=== PATIENT | female | born 1945 | race Caucasian/White ===

== ENCOUNTER 2016-04-26 11:10 | Observation (INO) ==
[2016-04-26 11:31] LABS: BASOPHILS # (AUTO) 0.1 K/uL (0-0.2); BASOPHILS % (AUTO) 0.9 % (0.0-3.0); EOSINOPHILS # (AUTO) 0.9 K/ul (0.0-0.7); EOSINOPHILS % (AUTO) 15.2 % (0.0-7.0); HEMATOCRIT 40.4 % (37.0-47.0); HEMOGLOBIN 13.7 g/dl (12.0-16.0); IMMATURE GRANULOCYTE % (AUTO) 0.2 % (0.0-5.0); LYMPHOCYTES # (AUTO) 1.2 K/uL (0.60-3.4); LYMPHOCYTES % (AUTO) 21.6 (10.0-50.0); MEAN CORPUSCULAR HEMOGLOBIN 30.9 pg (27.0-31.0); MEAN CORPUSCULAR HGB CONC 33.9 (31.8-35.4); MEAN CORPUSCULAR VOLUME 91.2 fl (81.0-99.0); MONOCYTES # (AUTO) 0.4 K/uL (0.4-2.0); MONOCYTES % (AUTO) 7.8 (0-10); NEUTROPHILS # (AUTO) 3.1 K/ul (2.0-6.9); NEUTROPHILS % (AUTO) 54.3; PLATELET COUNT 228 10^3/uL (140-440); RED BLOOD COUNT 4.43 10^6/ul (4.20-5.40); WHITE BLOOD COUNT 5.65 K/ul (4.6-10.2)
[2016-04-26 11:56] LABS: ALBUMIN 3.9 g/dL (3.4-5.0); ALBUMIN/GLOBULIN RATIO 1.26; ANION GAP 14.6; BILIRUBIN,TOTAL 1.09 mg/dL (0.00-1.20); BUN/CREATININE RATIO 25.88; CALCIUM 9.7 mg/dL (8.2-10.2); CREATININE 0.85 mg/dL (0.60-1.30); POTASSIUM 3.6 mmol/L (3.5-5.10); TROPONIN I 0.023 ng/ml (0.0000-0.4000)
--- NOTE | 2016-04-26 11:56 | DI ---
EXAM: Chest one view HISTORY: Pain COMPARISON: 06/17/2014 TECHNIQUE: Single view of the chest was performed FINDINGS: The lungs are clear. There is no pleural effusion or pneumothorax. The heart is normal in size. The mediastinal contour is normal. There are no acute abnormalities of the bones. IMPRESSION: No acute cardiopulmonary process.
--- NOTE | 2016-04-26 13:46 | ED.PDOC ---
General ED Provider: Dr. KELLY BEAUCHAMP Chief Complaint: Chest Pain Stated Complaint: CHEST PAIN Time Seen by Physician: 11:10 Mode of Arrival: Walk-In Information Source: Patient Exam Limitations: No limitations Primary Care Provider: PASCUAL AMBROSIO Nursing and Triage Documentation Reviewed and Agree: Yes Cardiovascular Complaint Exam - Chest Pain Complaint/Exam Onset: Gradual Duration: TODAY THIS MORNING AT REST PT STATED IT HAPPENED DUE TO STRESSED Symptoms Are: Resolved Timing: Intermittent Length of Chest Pain Episodes: 20 MIN Initial Severity: Moderate Current Severity: None Location: Reports: Midsternal Pain Radiates: Reports: None Character: Reports: Aching Aggravating: Reports: None Alleviating: Reports: None Associated Signs and Symptoms: Denies: Diaphoresis, Nausea, Vomiting, Fever, Palpitations, Cough, Hemoptysis, Back pain, Abdominal pain, Dizziness, Short of air, Calf pain, Calf swelling Related Surgical History: Reports: None History of Healthcare-Acquired Pneumonia: Reports: No AMI/ACS Risk Factors: Reports: Hypertension TAD Risk Factors: Reports: Hypertension Pulmonary Embolism Risk Factors: Reports: None Prior Care for this Complaint: No Recent Stress Test: No Recent Echo/LV Function: No JVD Present: No Subcutaneous Emphysema Present: No Diminshed Breath Sounds: No Reproducible Chest Wall Pain: No Bilateral Pulses Present: No Unequal Pulses Noted: No If Risk Factors for AMI/ACS Consider: EKG, Cardiac Enzymes Review of Systems - Review Of Systems Constitutional: Reports: No symptoms Eyes: Reports: No symptoms Ears, Nose, Mouth, Throat: Reports: No symptoms Respiratory: Reports: No symptoms Cardiac: Reports: Chest pain GI: Reports: No symptoms : Reports: No symptoms Musculoskeletal: Reports: No symptoms Skin: Reports: No symptoms Neurological: Reports: No symptoms Endocrine: Reports: No symptoms Hematologic/Lymphatic: Reports: No symptoms All Other Systems: Reviewed and Negative Past Medical History - Past Medical History Previously Healthy: No Endocrine: Reports: None Cardiovascular: Reports: Hypertension Respiratory: Reports: None Hematological: Reports: None Gastrointestinal: Reports: None Genitourinary: Reports: None Neuro/Psych: Reports: None Musculoskeletal: Reports: None Cancer: Reports: None Last Menstrual Period: none - Surgical History General Surgical History: Reports: None - Family History Family History: Reports: None - Social History Smoking Status: Never smoker Hx Substance Use: No Alcohol Screening: Occasionally Physical Exam - Physical Exam Appearance: Well-appearing, No pain distress, Well-nourished Eyes: FLOYD, EOMI, Conjunctiva clear ENT: Ears normal, Nose normal, Oropharynx normal Respiratory: Airway patent, Breath sounds clear, Breath sounds equal, Respirations nonlabored Cardiovascular: RRR, Pulses normal, No rub, No murmur GI/: Soft, Nontender, No masses, Bowel sounds normal, No Organomegaly Musculoskeletal: Normal strength, ROM intact, No edema, No calf tenderness Skin: Warm, Dry, Normal color Neurological: Sensation intact, Motor intact, Reflexes intact, Cranial nerves intact, Alert, Oriented Psychiatric: Affect appropriate, Mood appropriate Interpretation - Radiology Interpretation Radiology Interpretation By: Radiologist - Cleaning Matron Rate: Normal Rhythm: Sinus Ectopy: None Re-Evaluation - Re-Evaluation Time of Re-Evaluation: 11:30 Status: Improved Vital Signs Stable: Yes Pain Level: 0 Appearance: NAD Lungs: Clear Skin: Warm and Dry Neuro: Alert and Oriented X3 CV: Other (PAIN FREE THROUGH OUT ED VISIT) - Re-Evaluation Time of Re-Evaluation: 13:48 Status: Improved Vital Signs Stable: Yes Appearance: NAD Skin: Warm and Dry Neuro: Alert and Oriented X3 CV: RRR (STILL PAIN FREE) Physician Notification - Case Discussed Physician Notified: AMBROSIO Time of Notification: 14:22 (WILL SEE PT IN THE EMERGENCY [facility]) Admit To: Observation Critical Care Note - Critical Care Note Total Time (mins): 0 Course - Course Hematology/Chemistry: 17 11:28 04/26/16 11:28 Orders, Labs, Meds: Lab Review 04/26/16 11:28 WBC 5.65 RBC 4.43 Hgb 13.7 Hct 40.4 MCV 91.2 MCH 30.9 MCHC 33.9 RDW Coeff of Yvon 11.9 Plt Count 228 Immature Gran % (Auto) 0.2 Neut % (Auto) 54.3 Lymph % (Auto) 21.6 Kleberg % (Auto) 7.8 Eos % (Auto) 15.2 H Baso % (Auto) 0.9 Immature Gran # (Auto) 0.0 Neut # 3.1 Lymph # 1.2 Kleberg # 0.4 Eos # 0.9 H Baso # 0.1 D-Dimer 0.35 Sodium 141 Potassium 3.6 Chloride 100 Carbon Dioxide 30 Anion Gap 14.6 BUN 22 H Creatinine 0.85 Estimated GFR (MDRD) 66.00 BUN/Creatinine Ratio 25.88 Glucose 98 Calcium 9.7 Total Bilirubin 1.09 AST 16 ALT 21 Alkaline Phosphatase 58 Total Creatine Kinase 41 Troponin I 0.0230 B-Natriuretic Peptide 95 Total Protein 7.0 Albumin 3.9 Globulin 3.1 Albumin/Globulin Ratio 1.26 Orders Category Date Time Status PLACE PATIENT OBSERVATION .TO [facility] (MONITORED BED ADMISSION 04/26/16 14: 47 Ordered ) ECHOCARDIOGRAM 2D-M MODE Routine CARDIO 04/26/16 14:48 Ordered EKG-(ED ONLY) Stat CARDIO 04/26/16 11:21 Completed EKG-(ED ONLY) Stat CARDIO 04/26/16 12:12 Completed EKG-(ED ONLY) Stat CARDIO 04/26/16 14:32 Ordered EKG-(IP & OP ONLY) DAILY CARDIO 04/27/16 06:00 Ordered EKG-(IP & OP ONLY) DAILY CARDIO 04/28/16 06:00 Ordered EKG-(IP & OP ONLY) DAILY CARDIO 04/29/16 06:00 Ordered STRESS ECHO Routine CARDIO 04/26/16 14:48 Ordered ACTIVITY .Complete BR CARE 04/26/16 14:49 Ordered INTAKE & OUTPUT Q8HR CARE 04/26/16 14:47 Ordered TELEMETRY MONITORING TELE CARE 04/26/16 14:47 Ordered REGULAR DIET DIETARY 04/26/16 Dinner Ordered ED IV/MEDIPORT/POWERPORT .ONCE EMERGENCY 04/26/16 11:20 Active B-TYPE NATRIURETIC PEPTIDE Stat LAB 04/26/16 11:28 Completed CBC W/ AUTO DIFF DAILY@0600 LAB 04/27/16 06:00 Ordered CBC W/ AUTO DIFF DAILY@0600 LAB 04/28/16 06:00 Ordered CBC W/ AUTO DIFF DAILY@0600 LAB 04/29/16 06:00 Ordered CBC W/ AUTO DIFF DAILY@0600 LAB 04/30/16 06:00 Ordered CBC W/ AUTO DIFF DAILY@0600 LAB 05/01/16 06:00 Ordered CBC W/ AUTO DIFF DAILY@0600 LAB 05/02/16 06:00 Ordered CBC W/ AUTO DIFF DAILY@0600 LAB 05/03/16 06:00 Ordered CBC W/ AUTO DIFF DAILY@0600 LAB 05/04/16 06:00 Ordered CBC W/ AUTO DIFF DAILY@0600 LAB 05/05/16 06:00 Ordered CBC W/ AUTO DIFF DAILY@0600 LAB 05/06/16 06:00 Ordered CBC W/ AUTO DIFF DAILY@0600 LAB 05/07/16 06:00 Ordered CBC W/ AUTO DIFF DAILY@0600 LAB 05/08/16 06:00 Ordered CBC W/ AUTO DIFF DAILY@0600 LAB 05/09/16 06:00 Ordered CBC W/ AUTO DIFF DAILY@0600 LAB 05/10/16 06:00 Ordered CBC W/ AUTO DIFF DAILY@0600 LAB 05/11/16 06:00 Ordered CBC W/ AUTO DIFF DAILY@0600 LAB 05/12/16 06:00 Ordered CBC W/ AUTO DIFF DAILY@0600 LAB 05/13/16 06:00 Ordered CBC W/ AUTO DIFF DAILY@0600 LAB 05/14/16 06:00 Ordered CBC W/ AUTO DIFF DAILY@0600 LAB 05/15/16 06:00 Ordered CBC W/ AUTO DIFF DAILY@0600 LAB 05/16/16 06:00 Ordered CBC W/ AUTO DIFF Stat LAB 04/26/16 11:28 Completed COMPREHENSIVE METABOLIC PANEL DAILY@0600 LAB 04/27/16 06:00 Ordered COMPREHENSIVE METABOLIC PANEL DAILY@0600 LAB 04/28/16 06:00 Ordered COMPREHENSIVE METABOLIC PANEL DAILY@0600 LAB 04/29/16 06:00 Ordered COMPREHENSIVE METABOLIC PANEL DAILY@0600 LAB 04/30/16 06:00 Ordered COMPREHENSIVE METABOLIC PANEL DAILY@0600 LAB 05/01/16 06:00 Ordered COMPREHENSIVE METABOLIC PANEL DAILY@0600 LAB 05/02/16 06:00 Ordered COMPREHENSIVE METABOLIC PANEL DAILY@0600 LAB 05/03/16 06:00 Ordered COMPREHENSIVE METABOLIC PANEL DAILY@0600 LAB 05/04/16 06:00 Ordered COMPREHENSIVE METABOLIC PANEL DAILY@0600 LAB 05/05/16 06:00 Ordered COMPREHENSIVE METABOLIC PANEL DAILY@0600 LAB 05/06/16 06:00 Ordered COMPREHENSIVE METABOLIC PANEL DAILY@0600 LAB 05/07/16 06:00 Ordered COMPREHENSIVE METABOLIC PANEL DAILY@0600 LAB 05/08/16 06:00 Ordered COMPREHENSIVE METABOLIC PANEL DAILY@0600 LAB 05/09/16 06:00 Ordered COMPREHENSIVE METABOLIC PANEL DAILY@0600 LAB 05/10/16 06:00 Ordered COMPREHENSIVE METABOLIC PANEL DAILY@0600 LAB 05/11/16 06:00 Ordered COMPREHENSIVE METABOLIC PANEL DAILY@0600 LAB 05/12/16 06:00 Ordered COMPREHENSIVE METABOLIC PANEL DAILY@0600 LAB 05/13/16 06:00 Ordered COMPREHENSIVE METABOLIC PANEL DAILY@0600 LAB 05/14/16 06:00 Ordered COMPREHENSIVE METABOLIC PANEL DAILY@0600 LAB 05/15/16 06:00 Ordered COMPREHENSIVE METABOLIC PANEL DAILY@0600 LAB 05/16/16 06:00 Ordered COMPREHENSIVE METABOLIC PANEL Stat LAB 04/26/16 11:28 Completed CREATINE KINASE Q8H LAB 04/26/16 21:00 Ordered CREATINE KINASE Q8H LAB 04/27/16 05:00 Ordered CREATINE KINASE Stat LAB 04/26/16 11:28 Completed D-DIMER Stat LAB 04/26/16 11:28 Completed TROPONIN I Q8H LAB 04/26/16 21:00 Ordered TROPONIN I Q8H LAB 04/27/16 05:00 Ordered TROPONIN I Stat LAB 04/26/16 11:28 Completed 0.9 % Sodium Chloride [Saline Flush] MEDS 04/26/16 11:20 Active 1 syr IVF PRN PRN Aspirin [Aspirin EC] MEDS 04/27/16 08:00 Ordered 81 mg PO DAILYWM Atenolol/Chlorthalidone [Atenolol-Chlorthalidone 50-25] MEDS 04/27/16 09:00 Ordered 1 tab PO DAILY Calcium Carbonate/Vitamin D3 [Calcium 600 + Vit D MEDS 04/27/16 09:00 Ordered Caplet] 1 each PO DAILY Cholecalciferol (Vitamin D3) [Vitamin D3] MEDS 04/27/16 09:00 Ordered 2,000 unit PO DAILY Cyanocobalamin (Vitamin B-12) [Vitamin B-12] MEDS 04/27/16 09:00 Ordered 5,000 mcg PO DAILY Potassium Chloride [K-Dur] MEDS 04/27/16 09:00 Ordered 20 meq PO DAILY Sodium Chloride 0.9% [Sodium Chloride] 1,000 ml MEDS 04/26/16 15:00 Ordered IV 75 mls/hr CHEST, 1V AP ONLY Stat RADS 04/26/16 11:20 Completed Medications Generic Name Dose Route Start Last Admin Trade Name Freq PRN Reason Stop Dose Admin Sodium Chloride 1,000 mls @ 75 mls/hr 04/26/16 15:00 Sodium Chloride IV .[id number] Sodium Chloride 1 syr 04/26/16 11:20 Saline Flush IVF PRN PRN To flush IV Vital Signs: Temp Pulse Resp BP Pulse Ox 04/26/16 11:10 97.4 F L 57 L 18 142/82 H 100 ASH Risk Score ASH Risk Score: Risk Score Odds of by 30D 0 0.1 (0.1-0.2) 1 0.3 (0.2-0.3) 2 0.4 (0.3-0.5) 3 0.7 (0.6-0.9) 4 1.2 (1.0-1.5) 5 2.2 (1.9-2.6) 6 3.0 (2.5-3.6) 7 4.8 (3.8-6.1) Departure - Departure Time of Disposition: 13:49 (mily stern spoke to pt stay pt stated she would like to leave AMA LATER I TRIED TO TALK PT INTO STAYING BUT PT REQUESTED PMD TO SEE HER IN THE EMERGENCY [facility] GOOD[place] MADE TO DOCTOR DAILY HE WILL SEE PT IN E/ D. NO ACUTE EVENT WHILE IN ED ) Disposition: PLACED OBSERVATION Discharge Problem: Chest pain Instructions: Chest Pain (ED) Condition: Good Pt referred to PMD for follow-up: Yes (PMD WILL SEE PT IN THE E/D) Additional Instructions: Please call your Family Physician as soon as possible to schedule a follow-up appointment. Allergies/Adverse Reactions: Allergies No Known Allergies Allergy (Verified 04/26/16 11:16) Home Medications: Ambulatory Orders Calcium Carbonate/Vitamin D3 [Calcium 600 + Vit D Caplet] 1 each PO DAILY Cholecalciferol (Vitamin D3) [Vitamin D-3] 2,000 unit PO DAILY 04/13/14 Cyanocobalamin (Vitamin B-12) [Vitamin B-12] 5,000 mcg PO DAILY 04/13/14 Aspirin [Aspirin EC] 81 mg PO DAILYWM 02/26/16 Atenolol/Chlorthalidone [Atenolol-Chlorthalidone 50-25] 1 tab PO DAILY 02/26/16 Famotidine [Pepcid] 20 mg PO BIDAC PRN 02/26/16 Potassium Chloride [K-Dur] 20 meq PO DAILY 04/26/16 Disposition Discussed With: Patient
[2016-04-26 16:18] VITALS: BMI 28.7
[2016-04-26] MEDS: SODIUM CHLORIDE 1,000 ML IV SCH (16:45)
[2016-04-26 22:11] LABS: TROPONIN I 0.024 ng/ml (0.0000-0.4000)
[2016-04-27] MEDS: SODIUM CHLORIDE 1,000 ML IV SCH (04:36)
[2016-04-27 05:17] LABS: BASOPHILS % (AUTO) 0.7 % (0.0-3.0); EOSINOPHILS # (AUTO) 0.9 K/ul (0.0-0.7); EOSINOPHILS % (AUTO) 16.4 % (0.0-7.0); HEMATOCRIT 37.5 % (37.0-47.0); HEMOGLOBIN 12.6 g/dl (12.0-16.0); IMMATURE GRANULOCYTE % (AUTO) 0.4 % (0.0-5.0); LYMPHOCYTES # (AUTO) 1.6 K/uL (0.60-3.4); LYMPHOCYTES % (AUTO) 28.2 (10.0-50.0); MEAN CORPUSCULAR HEMOGLOBIN 30.4 pg (27.0-31.0); MEAN CORPUSCULAR HGB CONC 33.6 (31.8-35.4); MEAN CORPUSCULAR VOLUME 90.6 fl (81.0-99.0); MONOCYTES # (AUTO) 0.5 K/uL (0.4-2.0); MONOCYTES % (AUTO) 8.8 (0-10); NEUTROPHILS # (AUTO) 2.5 K/ul (2.0-6.9); NEUTROPHILS % (AUTO) 45.5; PLATELET COUNT 204 10^3/uL (140-440); RED BLOOD COUNT 4.14 10^6/ul (4.20-5.40); WHITE BLOOD COUNT 5.54 K/ul (4.6-10.2)
[2016-04-27 05:36] LABS: ALBUMIN 3.5 g/dL (3.4-5.0); ALBUMIN/GLOBULIN RATIO 1.25; ANION GAP 11.4; BILIRUBIN,TOTAL 1.42 mg/dL (0.00-1.20); BUN/CREATININE RATIO 19.71; CALCIUM 8.9 mg/dL (8.2-10.2); CREATININE 0.71 mg/dL (0.60-1.30); POTASSIUM 3.4 mmol/L (3.5-5.10); TOTAL PROTEIN 6.3 g/dL (5.8-8.1)
[2016-04-27 05:42] LABS: TROPONIN I 0.023 ng/ml (0.0000-0.4000)
[2016-04-27] MEDS ORDERED: ASPIRIN EC PO SCH (08:00)
[2016-04-27] MEDS ORDERED: ASPIRIN 81 MG PO SCH (08:00)
[2016-04-27] MEDS ORDERED: CALCIUM CARBONATE PO SCH (09:00)
[2016-04-27] MEDS ORDERED: [UNRECOGNIZED DRUG - OTHER] PO SCH (09:00)
[2016-04-27] MEDS ORDERED: [UNRECOGNIZED DRUG - OTHER] PO SCH (09:00)
[2016-04-27] MEDS ORDERED: VITAMIN D3 PO SCH (09:00)
[2016-04-27] MEDS ORDERED: NON-FORMULARY MEDICATION (Cholecalciferol (Vitamin D3) [Vitamin D3] 2,000 UNIT) PO SCH (09:00)
[2016-04-27] MEDS ORDERED: ATENOLOL PO SCH (09:00)
[2016-04-27] MEDS ORDERED: CALCIUM 500 + VIT D 200 MG TABLET PO SCH (09:00)
[2016-04-27] MEDS ORDERED: CHLORTHALIDONE PO SCH (09:00)
[2016-04-27] MEDS ORDERED: NON-FORMULARY MEDICATION (Potassium Chloride [K-Dur] 20 MEQ) PO SCH ×22 (09:00)
[2016-04-27] MEDS ORDERED: K-DUR PO SCH (09:00)
[2016-04-27] MEDS ORDERED: NON-FORMULARY MEDICATION (Cyanocobalamin (Vitamin B-12) [Vitamin B-12] 5,000 MCG) PO SCH (09:00)
[2016-04-27 11:01] VITALS: BP 105/62; TEMP 97.9
--- NOTE | 2016-04-27 12:44 | PN ---
DATE OF SERVICE: 04/26/15 ADMITTING NOTE REASON FOR HOSPITALIZATION: Chest pain. HISTORY OF PRESENT ILLNESS: 70 year old white female hospitalized via the emergency room. I saw her in the emergency room and ended up admitting her on observation because of the chest pain. The chest pain is left sided, precordial area which is shooting at times, steady. The patient is under a lot of pressure with family problems with the . She's tearful about it. The duration of symptoms is 8 to 12 hours. The patient drove herself to the emergency room. REVIEW OF SYSTEMS: CONSTITUTIONAL: Fatigue and weakness. HEENT: Eyes: No visual changes. No eye pain. No eye discharge. ENT: No runny nose. No epistaxis. No sinus pain. No sore throat. No odynophagia. No congestion. RESPIRATORY: No cough, no congestion. No hemoptysis. CARDIOVASCULAR: Chest pain localized pectoris muscle. Sharp, shooting at times , steady. No association of sweating. No palpitations. No shortness of breath with it. GASTROINTESTINAL: No abdominal pain. No nausea or vomiting. No diarrhea or constipation. No hematemesis. No hematochezia. GENITOURINARY: No urgency. No frequency. No dysuria. No hematuria. No obstructive symptoms. No discharge. No pain. No significant abnormal bleeding. MUSCULOSKELETAL: No musculoskeletal pain; no joint swelling. NEUROLOGICAL: No headache. No neck pain. No syncope. No seizures. No dizziness. PSYCHIATRIC: Not anxious. No depression. No suicidal thoughts. No homicidal thoughts. SKIN: No rash. No lesions. No wounds. ENDOCRINE: No unexplained weight loss. No weight gain. HEMATOLOGIC/LYMPHATIC: No anemia. No purpura. No petechiae. No prolonged or excessive bleeding. No palpable lymph nodes. PERSONAL HISTORY: The patient is and lives with the and having some problems with the . Nonsmoker, no alcohol abuse. Does all activities of daily living. PHYSICAL EXAMINATION: GENERAL: The patient is oriented to time, place and person. VITAL SIGNS: Temperature 98.4, pulse 80, respiratory rate 16, blood pressure 138/68. HEENT: Head normocephalic, atraumatic. Eyes: Extraocular muscles are intact. Pupils are equal, round and reactive to light and accommodation. Ears: No lesions. Nose appeared normal. Throat: No exudate or erythema. NECK: Supple. No JVD, no carotid bruit. No lymphadenopathy or thyromegaly. LUNGS: Clear to auscultation. Percussion note normal. Chest symmetrical. HEART: S1, S2, no S3. No murmurs. No cyanosis or clubbing. No ascites. Pulses: Dorsalis pedis and posterior tibial pulses +1 to +2 both sides. ABDOMEN: Soft. Nontender. Bowel sounds active. No CVA tenderness. No mass felt. EXTREMITIES: No edema. Full range of motion of all extremities, equal. NEUROLOGIC: No focal deficit. Cranial nerves II through XII are grossly intact. No headache, no double vision or headache. SKIN: Not dry. Intact. Turgor - normal. LYMPHATIC: No palpable lymph nodes/no lymphedema. MUSCULOSKELETAL: Normal joints with no swelling. Muscle tone is normal. EKG with sinus rhythm. No acute changes. Poor R wave progression. EKG done times two. CMP, CBC all negative. Troponin negative. CKMB negative. Telemetry rhythm examined. No ST-T wave changes. ASSESSMENT: 1. CHEST PAIN, SEEMS TO BE NONCARDIAC BY HISTORY, BUT HAS RISK FACTORS LIKE DYSLIPIDEMIA, FAMILY HISTORY OF HEART DISEASE, BMI OF 30. PLAN: 1. Admit this patient to observation. 2. Will monitor her cardiac rhythm. 3. Continue all the home medications. 4. At the time of admission, the patient's chest pain was practically gone. Will do an echocardiogram to evaluate LV function. 5. Will do stress echo to rule out any cardiac problems. Coronary artery disease and risk actors discussed. Angina symptoms discussed. CONDITION: Stable. TIME SPENT: More than 30 minutes. Plan and coordination of the patient's care discussed in the presence of nurse. KATHLEEN
--- NOTE | 2016-04-27 12:56 | HP ---
DATE OF SERVICE: 04/26/15 REASON FOR HOSPITALIZATION: Chest pain. HISTORY OF PRESENT ILLNESS: 70 year old white female hospitalized via the emergency room. I saw her in the emergency room and ended up admitting her on observation because of the chest pain. The chest pain is left sided, precordial area which is shooting at times, steady. The patient is under a lot of pressure with family problems with the . She's tearful about it. The duration of symptoms is 8 to 12 hours. The patient drove herself to the emergency room. REVIEW OF SYSTEMS: CONSTITUTIONAL: Fatigue and weakness. HEENT: Eyes: No visual changes. No eye pain. No eye discharge. ENT: No runny nose. No epistaxis. No sinus pain. No sore throat. No odynophagia. No congestion. RESPIRATORY: No cough, no congestion. No hemoptysis. CARDIOVASCULAR: Chest pain localized pectoris muscle. Sharp, shooting at times , steady. No association of sweating. No palpitations. No shortness of breath with it. GASTROINTESTINAL: No abdominal pain. No nausea or vomiting. No diarrhea or constipation. No hematemesis. No hematochezia. GENITOURINARY: No urgency. No frequency. No dysuria. No hematuria. No obstructive symptoms. No discharge. No pain. No significant abnormal bleeding. MUSCULOSKELETAL: No musculoskeletal pain; no joint swelling. NEUROLOGICAL: No headache. No neck pain. No syncope. No seizures. No dizziness. PSYCHIATRIC: Not anxious. No depression. No suicidal thoughts. No homicidal thoughts. SKIN: No rash. No lesions. No wounds. ENDOCRINE: No unexplained weight loss. No weight gain. HEMATOLOGIC/LYMPHATIC: No anemia. No purpura. No petechiae. No prolonged or excessive bleeding. No palpable lymph nodes. PERSONAL HISTORY: The patient is and lives with the and having some problems with the . Nonsmoker, no alcohol abuse. Does all activities of daily living. PAST MEDICAL HISTORY: Hypertension Gastroesophageal reflux disease FAMILY HISTORY: None given. MEDICATIONS: Vitamin B-12 5,000 mcg p.o. daily Calcium with Vitamin D3 one daily Pepcid 20 mg p.o. twice daily prn Aspirin 81 mg daily Atenolol 50/25 one p.o. daily K-Dur 20 mEq daily ALLERGIES: No known allergies. PHYSICAL EXAMINATION: GENERAL: The patient is oriented to time, place and person. VITAL SIGNS: Temperature 98.4, pulse 80, respiratory rate 16, blood pressure 138/68. HEENT: Head normocephalic, atraumatic. Eyes: Extraocular muscles are intact. Pupils are equal, round and reactive to light and accommodation. Ears: No lesions. Nose appeared normal. Throat: No exudate or erythema. NECK: Supple. No JVD, no carotid bruit. No lymphadenopathy or thyromegaly. LUNGS: Clear to auscultation. Percussion note normal. Chest symmetrical. HEART: S1, S2, no S3. No murmurs. No cyanosis or clubbing. No ascites. Pulses: Dorsalis pedis and posterior tibial pulses +1 to +2 both sides. ABDOMEN: Soft. Nontender. Bowel sounds active. No CVA tenderness. No mass felt. EXTREMITIES: No edema. Full range of motion of all extremities, equal. NEUROLOGIC: No focal deficit. Cranial nerves II through XII are grossly intact. No headache, no double vision or headache. SKIN: Not dry. Intact. Turgor - normal. LYMPHATIC: No palpable lymph nodes/no lymphedema. MUSCULOSKELETAL: Normal joints with no swelling. Muscle tone is normal. EKG with sinus rhythm. No acute changes. Poor R wave progression. EKG done times two. CMP, CBC all negative. Troponin negative. CKMB negative. Telemetry rhythm examined. No ST-T wave changes. LABS: Hemoglobin 13.7, hematocrit 40, WBC 5,600 with normal differential. Creatinine 0.8, BUN 22, potassium 3.6. Liver profile negative. BNP 95, which is normal. Chest x-ray normal. ASSESSMENT: 1. CHEST PAIN, SEEMS TO BE NONCARDIAC BY HISTORY, BUT HAS RISK FACTORS LIKE DYSLIPIDEMIA, FAMILY HISTORY OF HEART DISEASE, BMI OF 30. PLAN: 1. Admit this patient to observation. 2. Will monitor her cardiac rhythm. 3. Continue all the home medications. 4. At the time of admission, the patient's chest pain was practically gone. Will do an echocardiogram to evaluate LV function. 5. Will do stress echo to rule out any cardiac problems. Coronary artery disease and risk actors discussed. Angina symptoms discussed. CONDITION: Stable. TIME SPENT: More than 30 minutes. Plan and coordination of the patient's care discussed in the presence of nurse. KATHLEEN
--- NOTE | 2016-04-28 09:05 | ECHO2D ---
Date of Exam: 04/27/16 Ordering Physician: PASCUAL AMBROSIO Reason for Echo: CHEST PAIN, HYPERTENSION M-Mode Normal Adult Results LV Dimensions Normal Adult Results AoV Opening excursions >1.6 >1.6 LVEDD-base- 3.5-5.8 4.9 Ao root dimensions 2.0-3.7 3.0 LVESD-base- 3.1-4.6 L. Atrium dimensions 1.9-3.8 4.2 Post. Wall thickness 0.8-1.1 1.2 IV septum (thickness) 0.7-1.2 1.1 Post. Wall excursion 0.72-1.3 NORMAL Septal motion NORMAL Systolic motion R. Ventricular cavity 1.5-2.0 NORMAL LVEF 60% 52% Paradoxical septal wall motion NORMAL 2-D : 2-D M Mode Echocardiogram was performed using apical four chamber and left parasternal long and short axis views. Mitral, tricuspid and aortic valves appear to be normal. Contractility of the left ventricle seems to be normal, so is the cavity size. Left atrial cavity size and aortic root appear to be normal. There is no pericardial effusion. There is no thrombus noted in the left ventricular or left aortic cavity. No mitral valve prolapse noted. M-MODE: MV: NORMAL AV: NORMAL TV: NORMAL PV: CHAMBER SIZE: ENLARGED LEFT ATRIAL CAVITY WALL MOTION: NORMAL PERICARDIUM: NORMAL INTERPRETATION: 1. NORMAL LEFT VENTRICULAR CONTRACTILITY 2. NORMAL VALVES 3. MILD LEFT ATRIAL CAVITY ENLARGEMENT MTDD
--- NOTE | 2016-04-28 09:14 | ECHOSTRESS ---
Date of Exam: 04/27/16 Ordering Physician: PASCUAL AMBROSIO Reason for Echo: CHEST PAIN, HTN, STRESS TEST--NO ISCHEMIA M-Mode Normal Adult Results LV Dimensions Normal Adult Results AoV Opening excursions >1.6 LVEDD-base- 3.5-5.8 Ao root dimensions 2.0-3.7 LVESD-base- 3.1-4.6 L. Atrium dimensions 1.9-3.8 Post. Wall thickness 0.8-1.1 IV septum (thickness) 0.7-1.2 Post. Wall excursion 0.72-1.3 Septal motion Systolic motion R. Ventricular cavity 1.5-2.0 LVEF 60% Paradoxical septal wall motion 2-D: NORMAL LEFT VENTRICULAR CONTRACTILITY--RESTING AND POST EXERCISE M-MODE: MV: AV: TV: PV: CHAMBER SIZE: WALL MOTION: NORMAL LEFT VENTRICULAR CONTRACTILITY--RESTING AND POST EXERCISE PERICARDIUM: INTERPRETATION: 1. NORMAL LEFT VENTRICULAR CONTRACTILITY--RESTING AND POST EXERCISE MTDD
--- NOTE | 2016-04-28 09:20 | STRESSECHO ---
Date of Test: 04/27/16 Reason for Exam: CHEST PAIN, HYPERTENSION Ordering Physician: PASCUAL AMBROSIO Current Medications: ATENOLOL, ASA, K-DUR, PEPCID Physical Findings: S1, S2, NO S3 Resting EKG: SINUS RHYTHM/NO ACUTE CHANGES Target Heart Rate: 126/149 STAGE MPH/GRADE HEART RATE BPM BLOOD PRESSURE mmhg RHYTHM S-T SEGMENT +/- UP DOWN SYMPTOMS,COMMENTS At Rest 60 130/72 SR X NONE 1 1.7/10% 77 142/60 SR X NONE 2 2.5/12% 92 SR X NONE 3 3.4/14% 4 4.2/16% 5 5.0/18% Immediately after 110 146/60 SR X FATIGUE Durations of Exercise: 7:19 Maximum Heart Rate Reached: 110 Reason for Termination: FATIGUE INTERPRETATION: 95% OXYGEN SATURATION WITH EXERCISE ON ROOM AIR METS 10.1 1. NO EVIDENCE OF ISCHEMIC ST-T WAVE CHANGES 2. NO CHEST PAIN OR CHEST DISCOMFORT 3. NO ARRHYTHMIAS 4. BLOOD PRESSURE RESPONSE APPROPRIATE NORMAL LEFT VENTRICULAR CONTRACTILITY--RESTING AND POST EXERCISE MTDD
--- NOTE | 2016-04-29 09:39 | PN ---
DATE OF SERVICE: 04/27/16 - DISCHARGE NOTE SUBJECTIVE: 70-year-old white female hospitalized with atypical chest pain. The patient's cardiac markers are negative. EKGs unchanged. No acute changes. The patient's telemetry strips show sinus rhythm, no acute changes. REVIEW OF SYSTEMS: CONSTITUTIONAL: No night sweats. No fatigue, malaise, lethargy. No fever or chills. HEENT: Eyes: No visual changes. No eye pain. No eye discharge. ENT: No runny nose. No epistaxis. No sinus pain. No sore throat. No odynophagia. No congestion. RESPIRATORY: No cough, no congestion. No hemoptysis. CARDIOVASCULAR: No angina symptoms. No CHF symptoms. No atypical chest pain for CAD. No palpitations. No shortness of breath. GASTROINTESTINAL: No abdominal pain. No nausea or vomiting. No diarrhea or constipation. No hematemesis. No hematochezia. GENITOURINARY: No urgency. No frequency. No dysuria. No hematuria. No obstructive symptoms. No discharge. No pain. No significant abnormal bleeding. MUSCULOSKELETAL: No musculoskeletal pain; no joint swelling. NEUROLOGICAL: No headache. No neck pain. No syncope. No seizures. No dizziness. PSYCHIATRIC: Not anxious. No depression. No suicidal thoughts. No homicidal thoughts. SKIN: No rash. No lesions. No wounds. ENDOCRINE: No unexplained weight loss. No weight gain. HEMATOLOGIC/LYMPHATIC: No anemia. No purpura. No petechiae. No prolonged or excessive bleeding. No palpable lymph nodes. PHYSICAL EXAMINATION: GENERAL: The patient is oriented to time, place and person. VITAL SIGNS: Temperature 98.1, pulse 56, respiratory rate 18, BP 116/69, pulse ox 99%. HEENT: Head normocephalic, atraumatic. Eyes: Extraocular muscles are intact. Pupils are equal, round and reactive to light and accommodation. Ears: No lesions. Nose appeared normal. Throat: No exudate or erythema. NECK: Supple. No JVD, no carotid bruit. No lymphadenopathy or thyromegaly. LUNGS: Decreased breath sounds but clear to auscultation. Percussion note normal. Chest symmetrical. HEART: S1, S2, no S3. No murmurs. No cyanosis or clubbing. No ascites. Pulses: Dorsalis pedis and posterior tibial pulses +1 to +2 both sides. ABDOMEN: Soft. Nontender. Bowel sounds active. No CVA tenderness. No mass felt. EXTREMITIES: No edema. Full range of motion of all extremities, equal. NEUROLOGIC: No focal deficit. Cranial nerves II through XII are grossly intact. No headache, no double vision or headache. SKIN: Not dry. Intact. Turgor - normal. LYMPHATIC: No palpable lymph nodes/no lymphedema. MUSCULOSKELETAL: Normal joints with no swelling. Muscle tone is normal. LAB: Hemoglobin 12.6, hematocrit 37, WBC 5,500, normal differential. Creatinine 0.7, BUN 14, potassium 3.4, BNP 95, D. dimer negative. ASSESSMENT: 1. Chest pain, noncardiac, mostly muscular. The patient had echocardiogram done which showed normal LV contractility. Valves were normal. Stress echo - the patient's exercise capacity was good with Jake protochol more than [address]-T wave change. PLAN: 1. The patient is to continue the same medication as she has been on before. 2. The patient educated about coronary artery disease, angina, ASHD and risk factors. CONDITION AT TIME OF DISCHARGE: Stable. TIME SPENT: More than 30 minutes. Plan and coordination of the patient's care discussed in the presence of nurse. KATHLEEN
--- NOTE | 2016-06-04 14:38 | DS ---
DATE OF SERVICE: 04/27/16 FINAL DIAGNOSIS: 1. Chest pain, noncardiac, mostly muscular. 2. Hypertension 3. Colon polyps (colonoscopy - Dr. Mays 03/01/16) 4. GERD 5. Cholecystectomy VITAL SIGNS: Temperature 98.1, pulse 56, respiratory rate 18, BP 116/69, pulse ox 99 DISCHARGE INSTRUCTIONS: Followup appointment: Return to see Dr. Velasquez in 7 to 10 days. Please call to schedule appointment. MEDICATIONS AT DISCHARGE: Cyanocobalamin (Vitamin B12) 5,000 mcg p.o. daily Calcium Carbonate/Vitamin D3 one each p.o. daily Cholecalciferol (Vitamin D3) 2000 unit p.o. daily Famotidine (Pepcid) 20 mg p.o. b.i.d. a.c. p.r.n. Aspirin 81 mg p.o. daily with meal Atenolol/Chlorphthalidone one tab p.o. daily Potassium Chloride (K-Dur) 20 mEq p.o. daily NEW PRESCRIPTIONS: No new prescriptions DIET INSTRUCTIONS: Heart healthy. ACTIVITY: Get plenty of rest at home. Gradually increase your activity level according to your toleration. SMOKING: N/a DISEASE SPECIFIC EDUCATION: Diagnoses Coronary artery disease - angina - ASHD and risk factors Follow up Medications Diet HOSPITAL COURSE: This 70-year-old white female hospitalized with chest pain. The patient's serial EKGs, cardiac markers are all negative. BNP was within normal limits. D. Dimer was normal. The patient's echo and stress echo showed no evidence of ischemia. Echo showed normal LV contractility. The patient's exercise capacity was good. The patient was discharged home in stable condition to be followed as an outpatient. CONDITION AT TIME OF DISCHARGE: Stable. TIME SPENT: More than 60 minutes. [facility]
== END 2016-04-27 13:40 | disposition home or self-care (01) ==
LOC: ED 11:10 → MEDSURG B 14:51
PROVIDERS: ADMIT Internal Medicine; ATTEND Internal Medicine
DX: R07.89 Other chest pain (principal); I10 Essential (primary) hypertension; Z87.19 Personal history of other diseases of the digestive system; Z79.899 Other long term (current) drug therapy
CPT/HCPCS: 36415; 80053; 82550; 83880; 84484; 85025; 85379; 93005; 93010; 96360; 96361; 99284

== ENCOUNTER 2016-12-09 09:28 | Outpatient (CLI) | END 2016-12-09 09:29 | disposition home or self-care (01) | LOC: RAD 09:28 | PROVIDERS: ATTEND Internal Medicine | DX: Z12.31 Encounter for screening mammogram for malignant neoplasm of breast (principal) | CPT/HCPCS: 77067 ==

== ENCOUNTER 2018-12-18 11:00 | Outpatient (CLI) | payer OTHER | END 2018-12-18 11:01 | disposition home or self-care (01) | LOC: RAD 11:00 | PROVIDERS: ATTEND Internal Medicine | DX: Z12.31 Encounter for screening mammogram for malignant neoplasm of breast (principal) ==